=== PATIENT | female | born 1960 | race Caucasian/White ===

== ENCOUNTER 2022-07-11 17:44 | Emergency (ER) | payer BC ==
[~2022-07-11] VITALS: Ht 172.7 cm; Wt 104.5 kg
[2022-07-11 17:59] VITALS: BP 170/74; TEMP 98.4
[2022-07-11 18:45] VITALS: PULSE 77
== END 2022-07-11 19:42 | disposition home or self-care (01) ==
LOC: COL.ER 17:44
DX: H53.40 Unspecified visual field defects (principal)